=== PATIENT | female | born 1995 ===

== ENCOUNTER 2018-05-16 17:58 | Emergency (ER) | payer OTHER ==
[~2018-05-16] VITALS: Ht 162.6 cm; Wt 131.0 kg
[2018-05-16 18:03] VITALS: BP 153/81
--- NOTE | 2018-05-16 18:07 | NUR ---
Pt ambulated to room with teenage babysitter.
--- NOTE | 2018-05-16 18:20 | NUR ---
Pt ambulated to imaging with XR tech.
--- NOTE | 2018-05-16 18:30 | NUR ---
Oriana ALBRECHT, at bedside to evaluate pt.
--- NOTE | 2018-05-16 19:06 | NUR ---
Olga hull in [place] - 05/16/18 at 1911 by FRANCI Patient/Caregiver given discharge instructions and they have confirmed that they understand the instructions. Patient ambulatory with steady gait.
--- NOTE | 2018-05-16 19:15 | NUR ---
Oriana ALBRECHT, at bedside to discuss ED findings and d/c information.
--- NOTE | 2018-05-16 19:26 | NUR ---
Patient/Caregiver given discharge instructions and they have confirmed that they understand the instructions. Patient ambulatory with steady gait.
== END 2018-05-16 19:27 | disposition home or self-care (01) ==
LOC: ED 19:21
DX: S60.211A Contusion of right wrist, initial encounter (principal); E11.9 Type 2 diabetes mellitus without complications; F31.9 Bipolar disorder, unspecified; F17.200 Nicotine dependence, unspecified, uncomplicated; W22.8XXA Striking against or struck by other objects, initial encounter; Y93.89 Activity, other specified; Y92.89 Other specified places as the place of occurrence of the external cause; Y99.8 Other external cause status
CPT/HCPCS: 99283